=== PATIENT | male | born 1935 | race Caucasian/White ===

== ENCOUNTER 2018-04-25 19:41 | Inpatient (IN) | payer MEDICAID, OTHER | END 2018-04-30 18:10 | disposition home or self-care (01) | LOC: TELE 04-26 02:34 → ER 19:41 → TELE-WESTW 04-26 18:07 | PROC: 0DJ08ZZ Inspection of Upper Intestinal Tract, Via Natural or Artificial Opening Endoscopic (ICD-10-PCS; principal; 2018-04-28 13:05) | DX: I50.33 Acute on chronic diastolic (congestive) heart failure (principal); N17.9 Acute kidney failure, unspecified; J44.9 Chronic obstructive pulmonary disease, unspecified; E11.9 Type 2 diabetes mellitus without complications; L03.90 Cellulitis, unspecified; D50.9 Iron deficiency anemia, unspecified; G25.81 Restless legs syndrome; I70.0 Atherosclerosis of aorta; N18.3 Chronic kidney disease, stage 3 (moderate) ==